=== PATIENT | female | born 1950 | race African-American/Black ===

== ENCOUNTER → 2016-09-10 | Outpatient (CLI) | payer MEDICARE | LOC: RAD 09:34 | PROVIDERS: ATTEND Family Medicine | DX: Z12.31 Encounter for screening mammogram for malignant neoplasm of breast (principal); M85.80 Other specified disorders of bone density and structure, unspecified site; F17.200 Nicotine dependence, unspecified, uncomplicated | CPT/HCPCS: 77063; 77080; G0202; 77067 ==